=== PATIENT | female | born 1985 | race Caucasian/White ===

== ENCOUNTER 2022-12-19 11:42 | Emergency (ER) | payer SELFPAY ==
[~2022-12-19] VITALS: Ht 165.1 cm; Wt 72.0 kg
[2022-12-19] MEDS ORDERED: NAPROXEN 250MG TABLET PO ONE (13:15)
[2022-12-19] MEDS ORDERED: ACET-2708 MT (16:42)
[2022-12-19] MEDS ORDERED: BO1 TP (16:42)
[2022-12-19] MEDS ORDERED: NAPR500T7 MT (16:42)
[2022-12-19] MEDS ORDERED: BACITRACIN ZINC OINT UDPKT TOP ONE (17:00)
[2022-12-19 17:52] VITALS: BP 128/85
== END 2022-12-19 17:53 | disposition home or self-care (01) ==
LOC: ER 13:10
DX: S01.511A Laceration without foreign body of lip, initial encounter (principal); M79.10 Myalgia, unspecified site; W10.8XXA Fall (on) (from) other stairs and steps, initial encounter; Y93.89 Activity, other specified; Y92.018 Other place in single-family (private) house as the place of occurrence of the external cause
CPT/HCPCS: 70486; 71045; 73030; 73130; 81025; 99284